=== PATIENT | female | born 1990 | race Asian ===

== ENCOUNTER 2022-12-01 14:41 | Inpatient (IN) | payer OTHER ==
[~2022-12-01] VITALS: Ht 157.5 cm; Wt 86.2 kg
[~2022-12-01 14:41] MED LIST: NIFE10CA2 PO; SENN-153 PO
[2022-12-01] MEDS ORDERED: LR 500 ML IV ONE (17:45)
[2022-12-01] MEDS: LR 1,000 ML IV SCH ×2 (18:14→20:12)
[2022-12-02] MEDS ORDERED: NALBUPHINE HCL 10 MG/ML AMP IVP PRN (00:45)
[2022-12-02] MEDS ORDERED: LR 1,000 ML IV SCH (00:45)
[2022-12-02] MEDS ORDERED: LR 1,000 ML IV ONE (00:45)
[2022-12-02] MEDS ORDERED: TERBUTALINE SULFATE 1 MG/ML VIAL SUBCUT ONE (00:45)
[2022-12-02] MEDS ORDERED: OXYTOCIN/0.9 % SODIUM CHLORIDE 1,000 ML IV SCH (00:45)
[2022-12-02 01:46] LABS: BASOPHILS % (AUTO) 0.2 % (0.0-2.0); EOSINOPHILS # (AUTO) 0.1 K/uL (0.0-0.4); EOSINOPHILS % (AUTO) 0.6 % (0.0-4.0); HEMATOCRIT 36.4 % (36-48); HEMOGLOBIN 12.3 g/dL (12.0-16.0); LYMPHOCYTES # (AUTO) 1.6 K/uL (1.0-5.5); LYMPHOCYTES % (AUTO) 13.1 % (20.5-51.5); MEAN CORPUSCULAR HEMOGLOBIN 30 pg (27-31); MEAN CORPUSCULAR HGB CONC 34 % (32-36); MEAN CORPUSCULAR VOLUME 89 fL (79.0-98.0); MONOCYTES # (AUTO) 0.9 K/uL (0.0-1.0); MONOCYTES % (AUTO) 7.3 % (1.7-9.3); NEUTROPHILS # (AUTO) 9.6 K/uL (1.8-7.7); NEUTROPHILS % (AUTO) 78.8 % (40.0-70.0); PLATELET COUNT (AUTO) 185 K/uL (130-430); RED CELL DISTRIBUTION WIDTH 13.9 % (9.0-15.0); WHITE BLOOD COUNT (AUTO) 12.2 K/uL (4.8-10.8)
[2022-12-02 02:13] VITALS: BP_SYST 124
[2022-12-02] MEDS ORDERED: DIPHTH,PERTUSS(ACELL),TET VAC 0.5 ML VIAL (Tdap) I.M. ONE (10:00)
== END 2022-12-02 10:30 | disposition home or self-care (01) | DRG 833 ==
LOC: SPU 14:41 → OBSVTOIN 12-02 00:30
PROVIDERS: ADMIT Specialist; ATTEND Specialist
DX: O41.03X0 Oligohydramnios, third trimester, not applicable or unspecified (principal); Z3A.37 37 weeks gestation of pregnancy
CPT/HCPCS: 36415; 59025; 81002; 85025; 86592; 86886; 86900; 86901; 87536; 90715; 99284; G0378; J7120

== ENCOUNTER 2022-12-03 00:45 | Inpatient (IN) | payer OTHER ==
[~2022-12-03] VITALS: Ht 157.5 cm; Wt 86.2 kg
[2022-12-03] MEDS ORDERED: OXYTOCIN/0.9 % SODIUM CHLORIDE 1,000 ML IV SCH (02:00)
[2022-12-03] MEDS ORDERED: LR 1,000 ML IV ONE (02:00)
[2022-12-03] MEDS ORDERED: TERBUTALINE SULFATE 1 MG/ML VIAL SUBCUT ONE (02:00)
[2022-12-03] MEDS: HYDROmorphone 2 MG/ML VIAL IVP PRN ×2 (02:53→08:40)
[2022-12-03] MEDS: LR 1,000 ML IV SCH ×5 (02:57→20:52)
[2022-12-03 04:28] VITALS: BP_SYST 138; PULSE 93; RESP 18; TEMP 98.7
[2022-12-03] MEDS: ONDANSETRON HCL 4 MG/2 ML VIAL IVP PRN ×2 (08:35→17:43)
[2022-12-03] MEDS ORDERED: FENT2mCg/mL-ROPIVA0.2%/NS EPID 200 ML EP SCH (11:45)
[2022-12-03] MEDS ORDERED: ONDANSETRON HCL 4 MG/2 ML VIAL IVP PRN (11:45)
[2022-12-03] MEDS ORDERED: ROPIVACAINE HCL/PF 0.2% 200 ML ONE (12:15)
[2022-12-03] MEDS ORDERED: fentaNYL CITRATE/PF 100 MCG/2 ML AMP ONE (12:15)
[2022-12-03] MEDS ORDERED: ACETAMINOPHEN 325 MG TABLET PO PRN (21:15)
[2022-12-03] MEDS ORDERED: ACETAMINOPHEN 325 MG TABLET ONE (21:32)
[2022-12-04] MEDS ORDERED: AMPICILLIN SODIUM 2 GM in NS 100 ML IV ONE ×2
[2022-12-04] MEDS ORDERED: AMPICILLIN SODIUM 2 GM VIAL ONE (00:03)
[2022-12-04] MEDS: LR 1,000 ML IV SCH (00:20)
[2022-12-04] MEDS ORDERED: CEFAZOLIN 2 GM IVPB PREMIX 50 ML IV ONE ×4 (00:30→03:00)
[2022-12-04] MEDS ORDERED: LR 1,000 ML IV SCH ×2 (00:30→03:15)
[2022-12-04 01:12] LABS: BASOPHILS % (AUTO) 0.1 % (0.0-2.0); EOSINOPHILS % (AUTO) 0.1 % (0.0-4.0); HEMATOCRIT 35.8 % (36-48); LYMPHOCYTES # (AUTO) 0.9 K/uL (1.0-5.5); LYMPHOCYTES % (AUTO) 5.5 % (20.5-51.5); MEAN CORPUSCULAR HEMOGLOBIN 30 pg (27-31); MEAN CORPUSCULAR HGB CONC 34 % (32-36); MEAN CORPUSCULAR VOLUME 89 fL (79.0-98.0); MONOCYTES # (AUTO) 0.9 K/uL (0.0-1.0); MONOCYTES % (AUTO) 5.5 % (1.7-9.3); NEUTROPHILS # (AUTO) 14.9 K/uL (1.8-7.7); NEUTROPHILS % (AUTO) 88.8 % (40.0-70.0); PLATELET COUNT (AUTO) 169 K/uL (130-430); RED BLOOD CELL COUNT(AUTO) 4.01 MIL/uL (4.2-6.2); RED CELL DISTRIBUTION WIDTH 13.8 % (9.0-15.0); WHITE BLOOD COUNT (AUTO) 16.8 K/uL (4.8-10.8)
[2022-12-04 01:12] LABS: BILIRUBIN,URINE NEGATIVE (NEGATIVE); BLOOD, URINE 3+ (NEGATIVE); CLARITY/URINE CLEAR (CLEAR); COLOR,URINE YELLOW (YELLOW); GLUCOSE,URINE NEGATIVE (NEGATIVE); KETONES,URINE 2+ (NEGATIVE); LEUKOCYTE ESTERASE ,URINE 1+ (NEGATIVE); NITRITE, URINE NEGATIVE (NEGATIVE); PH,URINE 6.5 (5.0-8.0); PROTEIN URINE TRACE (NEGATIVE); UROBILINOGEN,URINE 0.2 (0.2-1.0)
[2022-12-04 02:14] LABS: BACTERIA,URINE RARE /HPF (None Seen)
[2022-12-04] MEDS ORDERED: METHYLERGONOVINE MALEATE 0.2 MG/ML AMP ONE (02:27)
[2022-12-04] MEDS ORDERED: NS IRRIG SOLN 1000 ML IR ONE (03:00)
[2022-12-04] MEDS ORDERED: LR 1,000 ML IV.SOLN IV ONE (03:00)
[2022-12-04] MEDS ORDERED: fentaNYL CITRATE/PF 100 MCG/2 ML AMP ONE (03:00)
[2022-12-04] MEDS ORDERED: OXYTOCIN 10 UNIT/ML VIAL ONE (03:00)
[2022-12-04] MEDS ORDERED: [UNRECOGNIZED DRUG - OTHER] INJ ONE (03:00)
[2022-12-04] MEDS ORDERED: MORPHINE SULFATE 10MG/10ML PF AMP ONE (03:00)
[2022-12-04] MEDS ORDERED: METOCLOPRAMIDE HCL 10 MG/2 ML VIAL ONE (03:00)
[2022-12-04] MEDS ORDERED: ONDANSETRON HCL 4 MG/2 ML VIAL ONE (03:00)
[2022-12-04] MEDS ORDERED: ePHEDrine sulfate 50 MG/ML VIAL ONE (03:00)
[2022-12-04] MEDS ORDERED: HYDROcodone/ACETAMIN 5-325 MG TAB (NORCO/ VICODIN) PO PRN (03:15)
[2022-12-04] MEDS ORDERED: ANUSOL 1 EA SUPP.RECT (PREPARATION H) RC PRN (03:15)
[2022-12-04] MEDS ORDERED: RHO(D) IMMUNE GLOBULIN/MALTOSE 1500 UNITS/1.3 ML (WINHRO) IM PRN (03:15)
[2022-12-04] MEDS ORDERED: LANOLIN 7 GM OINT. TP PRN (03:15)
[2022-12-04] MEDS ORDERED: BISACODYL 10 MG/SUPPOSITORY RC PRN (03:15)
[2022-12-04] MEDS ORDERED: MEASLES,MUMPS&RUBELLA VACC/PF 12500 UNIT/0.5 ML VIAL SUBQ PRN (03:15)
[2022-12-04] MEDS ORDERED: TEMAZEPAM 15 MG CAPSULE PO PRN (03:15)
[2022-12-04] MEDS ORDERED: DIPHTH,PERTUSS(ACELL),TET VAC 0.5 ML VIAL (Tdap) I.M. PRN (03:15)
[2022-12-04] MEDS ORDERED: NALOXONE HCL 0.4 MG/ML AMP (NARCAN) IVP PRN ×2 (03:15→04:15)
[2022-12-04] MEDS ORDERED: OXYCODONE/ACETAMINOPHEN *10*mg/325 mg TABLET PO PRN (03:15)
[2022-12-04] MEDS ORDERED: AMPICILLIN SODIUM 1 GM in NS 50 ML IV SCH (04:00)
[2022-12-04 04:01] VITALS: BP_SYST 131
[2022-12-04] MEDS ORDERED: ONDANSETRON HCL 4 MG/2 ML VIAL IVP PRN (04:15)
[2022-12-04] MEDS ORDERED: KETOROLAC TROMETHAMINE 60 MG/2 ML VIAL IM PRN (04:15)
[2022-12-04] MEDS ORDERED: DIPHENHYDRAMINE INJ 50 MG/ML VIAL IM PRN (04:15)
[2022-12-04] MEDS ORDERED: LR 1,000 ML IV ONE (04:45)
[2022-12-04] MEDS: SIMETHICONE 80 MG TAB.CHEW PO PRN ×5 (08:05→21:09)
[2022-12-04] MEDS: CEFAZOLIN 1 GM IVPB PREMIX 50 ML IV SCH ×2 (11:52→18:01)
[2022-12-04] MEDS: KETOROLAC TROMETHAMINE 30 MG VIAL IVP SCH ×3 (11:55→23:53)
[2022-12-04] MEDS: DOCUSATE SODIUM 100 MG CAPSULE PO SCH ×2 (12:40→21:08)
[2022-12-04] MEDS: OXYTOCIN/0.9 % SODIUM CHLORIDE 1,000 ML IV SCH ×2 (13:04→21:13)
[2022-12-05] MEDS: SIMETHICONE 80 MG TAB.CHEW PO PRN ×6 (00:04→18:03)
[2022-12-05] MEDS: OXYTOCIN/0.9 % SODIUM CHLORIDE 1,000 ML IV SCH (05:51)
[2022-12-05] MEDS: IBUPROFEN 600 MG TABLET PO SCH ×4 (05:52→23:59)
[2022-12-05 07:02] LABS: BASOPHILS % (AUTO) 0.1 % (0.0-2.0); EOSINOPHILS # (AUTO) 0.1 K/uL (0.0-0.4); EOSINOPHILS % (AUTO) 0.4 % (0.0-4.0); HEMATOCRIT 31.4 % (36-48); HEMOGLOBIN 10.4 g/dL (12.0-16.0); LYMPHOCYTES % (AUTO) 7.6 % (20.5-51.5); MEAN CORPUSCULAR HEMOGLOBIN 30 pg (27-31); MEAN CORPUSCULAR HGB CONC 33 % (32-36); MEAN CORPUSCULAR VOLUME 90 fL (79.0-98.0); MONOCYTES # (AUTO) 0.7 K/uL (0.0-1.0); MONOCYTES % (AUTO) 5.1 % (1.7-9.3); NEUTROPHILS # (AUTO) 11.6 K/uL (1.8-7.7); NEUTROPHILS % (AUTO) 86.8 % (40.0-70.0); PLATELET COUNT (AUTO) 138 K/uL (130-430); RED BLOOD CELL COUNT(AUTO) 3.47 MIL/uL (4.2-6.2); RED CELL DISTRIBUTION WIDTH 14.1 % (9.0-15.0); WHITE BLOOD COUNT (AUTO) 13.4 K/uL (4.8-10.8)
[2022-12-05] MEDS: DOCUSATE SODIUM 100 MG CAPSULE PO SCH ×2 (09:00→20:02)
[2022-12-05] MEDS: OXYCODONE/ACETAMINOPHEN 5-325 TABLET PO PRN ×2 (14:32→20:03)
[2022-12-05] MEDS: SENNOSIDES/DOCUSATE SODIUM 1 TAB TABLET(SENOKOT-S) PO SCH (20:02)
[2022-12-06] MEDS: IBUPROFEN 600 MG TABLET PO SCH ×3 (06:03→18:07)
[2022-12-06] MEDS: SIMETHICONE 80 MG TAB.CHEW PO PRN ×4 (06:34→18:08)
[2022-12-06] MEDS: DOCUSATE SODIUM 100 MG CAPSULE PO SCH ×2 (09:18→20:23)
[2022-12-06] MEDS: OXYCODONE/ACETAMINOPHEN 5-325 TABLET PO PRN ×3 (09:22→20:24)
[2022-12-06] MEDS ORDERED: PERC10 PO (12:17)
[2022-12-06] MEDS: SENNOSIDES/DOCUSATE SODIUM 1 TAB TABLET(SENOKOT-S) PO SCH (20:23)
[2022-12-07] MEDS: IBUPROFEN 600 MG TABLET PO SCH ×3 (00:04→12:57)
[2022-12-07] MEDS: SIMETHICONE 80 MG TAB.CHEW PO PRN ×3 (00:04→12:57)
[2022-12-07] MEDS: OXYCODONE/ACETAMINOPHEN 5-325 TABLET PO PRN ×2 (02:07→09:30)
[2022-12-07] MEDS: DOCUSATE SODIUM 100 MG CAPSULE PO SCH (10:19)
== END 2022-12-07 15:00 | disposition home or self-care (01) | DRG 787 ==
LOC: OBSVTOIN 00:45 → SPU 00:45
PROVIDERS: ADMIT Specialist; ATTEND Specialist
PROC: 10D00Z1 Extraction of Products of Conception, Low, Open Approach (ICD-10-PCS; principal; 2022-12-04 03:00)
DX: O62.2 Other uterine inertia (principal); D62 Acute posthemorrhagic anemia; O76 Abnormality in fetal heart rate and rhythm complicating labor and delivery; O77.0 Labor and delivery complicated by meconium in amniotic fluid; Z3A.38 38 weeks gestation of pregnancy; Z37.0 Single live birth
CPT/HCPCS: 36415; 81000; 81002; 85025; 86592; 86886; 86900; 86901; 94760; J0290; J0690; J1170; J1885; J2210; J2274; J2405; J2590; J2765; J3010; J7120